=== PATIENT | female | born 1995 | race Caucasian/White ===

== ENCOUNTER 2022-08-01 18:56 | Emergency (ER) | payer BC ==
[~2022-08-01] VITALS: Ht 157.5 cm; Wt 80.9 kg
[2022-08-01 19:31] VITALS: BP 146/99
--- NOTE | 2022-08-01 19:36 | NUR ---
Juan Manuel hutson in [facility] - 08/01/22 at 1940 by [facility] PT TO BED 2
--- NOTE | 2022-08-01 19:40 | NUR ---
PT TO BED 3
--- NOTE | 2022-08-01 19:41 | NUR ---
Patient lying in bed, A/Ox4, chest rise and fall symmetrical, no c/o pain or s/s of distress.
--- NOTE | 2022-08-01 19:42 | NUR ---
Patient stated, on 07/31/22, patient was "in an office at work and was fed food which caused visualhallucinations."
[2022-08-01] MEDS ORDERED: ONDANSETRON 4 MG/2 ML VIAL IVP ONE (19:50)
[2022-08-01] MEDS ORDERED: NACL 0.9% 1,000 ML IV ONE (19:50)
[2022-08-01 20:07] LABS: APPEARANCE,URINE SL CLOUDY (CLEAR); BILIRUBIN,URINE NEGATIVE (NEGATIVE); BLOOD, URINE TRACE-I (NEGATIVE); COLOR,URINE YELLOW (YELLOW); LEUKOCYTE ESTERASE ,URINE NEGATIVE (NEGATIVE); NITRITE, URINE NEGATIVE (NEGATIVE); PH,URINE 6.5 (5.0-9.0); UGLUCOSE NEGATIVE (NEGATIVE)
[2022-08-01 20:25] LABS: WBC,URINE 0-5 /HPF (0-5)
[2022-08-01 20:26] LABS: CALCIUM OXALATE CRYSTALS,UR 0-10 /HPF (None Seen); OTHER CASTS, URINE None Seen /LPF (None Seen)
[2022-08-01 20:30] LABS: BASOPHILS # (AUTO) 0.1 K/uL (0.00-0.22); BASOPHILS % (AUTO) 0.9 % (0.0-2.0); EOSINOPHILS % (AUTO) 0.2 % (0.0-4.0); HEMATOCRIT 39.1 % (36-48); LYMPHOCYTES # (AUTO) 2.6 K/uL (2.5-16.5); LYMPHOCYTES % (AUTO) 17.6 % (20.5-51.1); MEAN CORPUSCULAR HEMOGLOBIN 28 pg (27-31); MEAN CORPUSCULAR HGB CONC 33 g/dL (33-37); MEAN CORPUSCULAR VOLUME 83.9 fL (80-94); MONOCYTES % (AUTO) 6.6 % (1.7-9.3); NEUTROPHILS # (AUTO) 11.2 K/uL (1.8-7.7); NEUTROPHILS % (AUTO) 74.7 % (42.2-75.2); PLATELET COUNT (AUTO) 302 K/uL (140-450); RED BLOOD CELL COUNT(AUTO) 4.66 MIL/uL (4.20-5.40); RED CELL DISTRIBUTION WIDTH 13.8 % (11.6-13.7)
--- NOTE | 2022-08-01 20:32 | NUR ---
IV successfully inserted at 2020 hrs and labs drawn, patient A/Ox4, no s/s of distress or c/o pain, chest rise and fall symmetrical. At 2030 hrs, patient became anxious and stated "I want to IV out." IV removed utilizing aseptic technique. Patient refused IV fluids and stated she "will take zofran by mouth." Dr. Lynn verbally informed and Dr. Orat verbalized understanding, stating he "will change Zofran order to PO."
[2022-08-01 20:34] LABS: BARBITURATE, URINE NEGATIVE ng/ml (NEG <=200); BENZODIAZEPINE, URINE NEGATIVE ng/mL (NEG <=200); CANNABINOID, URINE NEGATIVE ng/mL (NEG <=50); COCAINE, URINE NEGATIVE ng/mL (NEG <=300); OPIATE, URINE NEGATIVE ng/mL (NEG <=2000); PHENCYCLIDINE SCREEN,URINE NEGATIVE ng/mL (NEG <=25)
[2022-08-01] MEDS ORDERED: ONDANSETRON 4 MG ODT PO ONE (20:35)
--- NOTE | 2022-08-01 20:48 | NUR ---
Patient brought back from radiology. technical engineer stated patent "ran out of room when she saw CT machine." Patient very anxious. Dr. Orta aware.
[2022-08-01 20:50] LABS: ALBUMIN 3.8 g/dL (3.4-5.0); ANION GAP 13.3 (8-16); CREATININE 0.5 mg/dL (0.6-1.3); POTASSIUM 3.3 mmol/L (3.5-5.1); TOTAL BILIRUBIN 0.4 mg/dL (0.0-1.0)
[2022-08-01] MEDS ORDERED: HALOPERIDOL IM 5 MG/ML VIAL IM ONE (20:50)
[2022-08-01] MEDS ORDERED: diphenhydrAMINE 50 MG/ML VIAL IM ONE (20:50)
[2022-08-01 20:52] LABS: ACETAMINOPHEN < 0.5 ug/ml (10-30); SALICYLATE < 2.8 mg/dL (2.8-20.0)
--- NOTE | 2022-08-01 22:20 | NUR ---
Patient lying in bed, A/Ox4, chest rise and fall symmetrical, no c/o pain or s/s of distress.
--- NOTE | 2022-08-01 22:40 | NUR ---
Patient denied SI/HI, resting comfortably in bed, waiting on CT results. Dr. Michael at bedside speaking with patient.
[2022-08-01 23:32] VITALS: BP 123/73
--- NOTE | 2022-08-01 23:37 | NUR ---
Patient discharged with v/s stable. Written and verbal after care instructions given and explained. Patient verbalized understanding. Ambulatory with steady gait. All questions addressed prior to discharge. Advised to follow up with PMD.
== END 2022-08-01 23:32 | disposition home or self-care (01) ==
LOC: MED 18:56
DX: F22 Delusional disorders (principal); R41.0 Disorientation, unspecified; J45.909 Unspecified asthma, uncomplicated; Z72.89 Other problems related to lifestyle
CPT/HCPCS: 36415; 70450; 80053; 80305; 81001; 81025; 85025; 93005; 96372; 99285; G0480; G0482; J1200; J1630; Q0162